=== PATIENT | male | born 1945 | race Caucasian/White ===

== ENCOUNTER 2024-04-28 04:50 | Emergency (ER) | payer MEDICARE, OTHER ==
[~2024-04-28] VITALS: Ht 167.6 cm; Wt 77.1 kg
[2024-04-28 05:07] VITALS: TEMP 99.4
[2024-04-28 05:20] VITALS: PULSE 105; RESP 20; O2SAT 100
[2024-04-28] MEDS: ACETAMINOPHEN 325 MG TAB PO STA (05:20)
[2024-04-28] MEDS: SODIUM CHLORIDE 0.9% 1000ML 1,000 ML IV STA ×2 (05:20→05:56)
[2024-04-28] MEDS: ALBUTEROL/IPRATROPIUM 3 ML NEB NEB STA (05:20)
[2024-04-28 05:25] LABS: BASOPHILS # (AUTO) 0.1 (0.0-0.1); BASOPHILS % 0.4 % (0.0-1.0); EOSINOPHILS % 0.2 % (0.0-6.0); HEMATOCRIT 22.4 % (38.2-49.6); LYMPHOCYTES # (AUTO) 1.6 (1.0-3.2); LYMPHOCYTES % 12.3 % (18.0-39.1); MEAN CORPUSCULAR HGB CONC 31.3 g/dL (31-35); MEAN CORPUSCULAR VOLUME 105.7 fL (81-99); MONOCYTES # (AUTO) 0.9 (0.2-0.8); MONOCYTES % 7.2 % (4.4-11.3); NEUTROPHILS # (AUTO) 10.4 (2.1-6.9); NEUTROPHILS % 79.2 % (38.7-80.0); PLATELET COUNT 372 x10e3/uL (140-360); RED BLOOD COUNT 2.12 x10e6/uL (4.3-5.7); RED CELL DISTRIBUTION WIDTH 19.5 % (11.7-14.4); WHITE BLOOD COUNT 13.14 x10e3/uL (4.8-10.8)
[2024-04-28 05:35] VITALS: PULSE 106; RESP 20
[2024-04-28 05:38] LABS: INFLUENZA A AG NEGATIVE (NEGATIVE)
[2024-04-28 05:39] LABS: CORONAVIRUS COVID-19 AG NEGATIVE (NEGATIVE); INFLUENZA B AG NEGATIVE (NEGATIVE)
[2024-04-28 05:45] LABS: ALBUMIN/GLOBULIN RATIO 1.1 (0.8-2.0); ANION GAP 17.9 mmol/L (8-16); BILIRUBIN,TOTAL 0.4 mg/dL (0.2-1.2); CALCIUM 8.2 mg/dL (8.4-10.2); CREATININE, SERUM 1.18 mg/dL (0.72-1.25); POTASSIUM 3.9 mmol/L (3.5-5.1); TOTAL PROTEIN 5.7 g/dL (6.5-8.1)
[2024-04-28 05:56] LABS: TROPONIN I 0.308 ng/mL (0-0.300)
[2024-04-28] MEDS: KETOROLAC TROMETHAMINE 30 MG/ML VIAL IV STA (05:56)
[2024-04-28] MEDS: SODIUM CHLORIDE 0.9% 1000ML 1,000 ML IV SCH (06:00)
[2024-04-28] MEDS ORDERED: ONDANSETRON HCL INJ 2MG/ML 2ML 2 MG/ML VIAL IV PRN (06:00)
[2024-04-28] MEDS ORDERED: KETAMINE HCL INJ 50 MG/ML 10 ML VIAL ONE (06:12)
[2024-04-28] MEDS: KETAMINE HCL INJ 50 MG/ML 10 ML VIAL IV STA (06:18)
[2024-04-28] MEDS ORDERED: EPINEPHRINE HCL 1:1000 1ML 1 MG/ML AMP ONE (06:43)
[2024-04-28] MEDS ORDERED: SODIUM CHLORIDE 0.9% 250ML 250 ML ONE (06:43)
[2024-04-28] MEDS ORDERED: PROPOFOL IV EMULSION 10MG/ML 100 ML ONE (06:51)
[2024-04-28 07:10] VITALS: PULSE 112; RESP 23; O2SAT 96
[2024-04-28 07:53] LABS: EOSINOPHILS % (MANUAL) 1 % (0-7); LYMPHOCYTES % (MANUAL) 11 % (19-48); MONOCYTES % (MANUAL) 8 % (3.4-9.0); NEUTROPHILS % (MANUAL) 80 % (40-74)
[2024-04-28 07:54] LABS: ANISOCYTOSIS MODERATE; HYPOCHROMASIA SLIGHT; PLATELET ESTIMATE ADEQUATE; PLATELET MORPHOLOGY COMMENT NORMAL; POLYCHROMASIA FEW; RBC MORPHOLOGY COMMENT ABNORMAL
[2024-04-28 08:18] LABS: ABG HCO3 12 mmol/L (22-26); ABG PCO2 32 mmHg (35-45); ABG PH 7.17 (7.35-7.45); ABG PO2 120 mmHg (80-105); ABG TCO2 13
[2024-04-28] MEDS ORDERED: CALCIUM CHLORIDE 10% 1.36 MEQ/ML 10ML SYR IV ONE (10:04)
[2024-04-28] MEDS ORDERED: EPINEPHRINE HCL SYRINGE ONE (10:04)
[2024-04-28] MEDS ORDERED: DEXTROSE 50% SYRINGE 50 ML IV ONE (10:04)
[2024-04-28] MEDS ORDERED: SODIUM BICARBONATE 8.4% INJ 50 ML SYR ONE (10:04)
[2024-04-29] MEDS ORDERED: ETOMIDATE 40 MG/ 20ML VIAL IV ONE (11:39)
[2024-04-29] MEDS ORDERED: SUCCINYLCHOLINE 200 MG/10 ML SYR ONE (11:39)
[2024-05-01 07:42] LABS: ABG PH 7.17 (7.35-7.45)
== END 2024-04-28 08:55 | disposition other institution (70) ==
LOC: ER 04:56 → ERHOLD 06:15 → UNDOADMIN 06:15 → ER 08:55
DX: R06.02 Shortness of breath (principal); R07.89 Other chest pain; D64.9 Anemia, unspecified; F10.10 Alcohol abuse, uncomplicated; I10 Essential (primary) hypertension; R94.31 Abnormal electrocardiogram [ECG] [EKG]
CPT/HCPCS: 31500; 36415; 36556; 36600; 71045; 80053; 80320; 82550; 82805; 83605; 83690; 83880; 84484; 85025; 86850; 86900; 87040; 87071; 87186; 87205; 87428; 92950; 93005; 94002; 94640; 94660; 94799; 99285; J0171 ×2; J1885; J2405; J2543; J2704; J7030; J7050; J7799; 36555